=== PATIENT | female | born 1945 | race Caucasian/White ===

== ENCOUNTER 2018-08-06 04:29 | Inpatient (IN) | payer MEDICARE, OTHER ==
[2018-08-06] MEDS ORDERED: DUONEB 0.5-3 MG/3 ml Neb IH ONE ×2 (04:41→04:42)
[2018-08-06] MEDS ORDERED: ROCEPHIN 1 Gm-D5w 50 ml Bag** 1 G/50 ML IVPB IV STA (04:42)
[2018-08-06] MEDS ORDERED: Zithromax 500 MG/ 250 ML NaCl Premix 500 MG/250 ML IVPB IV STA (04:42)
[2018-08-06] MEDS ORDERED: solu-MEDROL 125 MG IV ONE (04:42)
--- NOTE | 2018-08-06 04:49 | ERPHSYRPT ---
- History of Present Illness Source: patient Exam Limitations: no limitations Timing/Duration: day(s) Activities at Onset: none Severity of Dyspnea-Max: moderate Severity of Dyspnea-Current: moderate Allergies/Adverse Reactions: propoxyphene [From Darvon] Allergy (Verified 08/06/18 05:03) Home Medications: Albuterol Sulfate [Proair Hfa] 8.5 gm IH Q4HPRN PRN 08/06/18 [History] Aspirin EC 81 mg [Ecotrin 81 mg] 81 mg PO DAILY 08/06/18 [History] Budesonide/Formoterol Fumarate [Symbicort 160-4.5 Mcg Inhaler] 10.2 gm IH BID [History] Isosorbide Mononitrate 60 mg [Imdur 60MG] 60 mg PO DAILY 08/06/18 [History] Lisinopril 20 mg [Zestril 20 MG] 20 mg PO BID 08/06/18 [History] Metoprolol Tartrate 50 mg [Lopressor 50 MG] 50 mg PO DAILY 08/06/18 [ History] Multivit with Iron,Minerals [Multivitamins with Iron] 1 tab PO DAILY 08/06/18 [ History] Ropinirole HCl 0.5 mg [Requip 0.5 MG] 0.5 mg PO HS 08/06/18 [History] Ticagrelor [Brilinta] 90 mg PO BID 08/06/18 [History] - Review of Systems Constitutional: Fatigue, Weakness Eyes: No Symptoms Ears, Nose, & Throat: No Symptoms Respiratory: Dyspnea on Exertion (BEAVERS), Wheezing Cardiac: No Chest Pain, No Edema, No Syncope Abdominal/Gastrointestinal: No Abdominal Pain, No Nausea, No Vomiting, No Diarrhea Genitourinary Symptoms: No Dysuria Musculoskeletal: No Back Pain, No Neck Pain Neurological: No Dizziness, No Focal Weakness, No Sensory Changes - Nursing Vital Signs Nursing Vital Signs: Initial Vital Signs Temperature 100.8 F 08/06/18 04:35 Pulse Rate 118 H 08/06/18 04:35 Respiratory Rate 24 08/06/18 04:35 Blood Pressure 200/111 08/06/18 04:35 O2 Sat by Pulse Oximetry 98 08/06/18 04:35 Pain Scale Pain Intensity 2 - Physical Exam General Appearance: moderate distress, cachetic Eye Exam: PERRL/EOMI Respiratory Exam: respiratory distress, accessory muscle use, wheezing Cardiovascular/Chest Exam: normal heart sounds, regular rate/rhythm Abdominal/Gastrointestinal Exam: soft, No tenderness, No distention, No mass Extremity Exam: non-tender, normal range of motion, normal inspection, no calf tenderness, no pedal edema Neurologic Exam: alert, oriented x 3, cooperative, spanish moss picker II-XII nml as tested, sensation nml, No motor deficits SpO2 Interpretation: hypoxic (Required 3 lit NC) - Course Nursing assessment & vital signs reviewed: Yes EKG Interpreted by Me: Sinus Tach, NORMAL ST-T - Radiology Exams Chest X-ray Interpretation: Interpreted by me (Hyperinflated lungs. Infiltrates on RLL and RML) Ordered Tests: Active Orders 24 hr Category Date Time Status Director Physical STAT Care 08/06/18 04:44 Active EKG-ER Only STAT Care 08/06/18 04:42 Active IV Insertion STAT Care 08/06/18 04:42 Active Oxygen-ED Only Nasal Cannula 3 lpm Care 08/06/18 04:42 Active CHEST 2 VIEWS (PA AND LAT) Stat Exams 08/06/18 04:44 Ordered CHEST WITH CONTRAST [CT] Stat Exams 08/06/18 05:49 Ordered CBC W DIFF Stat Lab 08/06/18 04:55 Received CMP Stat Lab 08/06/18 04:55 Received D-DIMER QUANTITATION Stat Lab 08/06/18 04:55 Received Lactic Acid Stat Lab 08/06/18 04:52 Completed MAGNESIUM Stat Lab 08/06/18 04:55 Received NT PRO BNP Stat Lab 08/06/18 04:55 Received Sputum Culture [CULTURE,SPUTUM] Stat Lab 08/06/18 Uncollected TROPONIN Q3H Lab 08/06/18 04:55 Received TROPONIN Q3H Lab 08/06/18 07:45 Ordered TROPONIN Q3H Lab 08/06/18 10:45 Ordered TROPONIN Q3H Lab 08/06/18 13:45 Ordered TROPONIN Q3H Lab 08/06/18 16:45 Ordered UA W/RFX UR CULTURE Stat Lab 08/06/18 04:43 Uncollected Respiratory Nebulizer STAT RT 08/06/18 04:45 Completed Respiratory Therapy Assessment DAILY RT 08/06/18 04:52 Completed Medication Summary Discontinued Medications Generic Name Dose Route Start Last Admin Trade Name Chapo PRN Reason Stop Dose Admin Albuterol/Ipratropium Confirm 08/06/18 04:41 Duoneb 0.5-3 Mg/3 Ml Neb Administered 08/06/18 04:42 Dose 3 ml IH .STK-MED ONE Albuterol/Ipratropium 3 ml 08/06/18 04:42 08/06/18 04:51 Duoneb 0.5-3 Mg/3 Ml Neb IH 08/06/18 04:43 3 ml STAT ONE Administration Furosemide 40 mg 08/06/18 05:50 08/06/18 05:56 Lasix 40 Mg/4 Ml IV 08/06/18 05:51 40 mg STAT ONE Administration Furosemide Confirm 08/06/18 05:54 Lasix 40 Mg/4 Ml Administered 08/06/18 05:55 Dose 40 mg .ROUTE .STK-MED ONE Hydralazine HCl 20 mg 08/06/18 05:01 08/06/18 05:09 Apresoline 20 Mg/Ml Inj IV 08/06/18 05:02 20 mg STAT ONE Administration Ceftriaxone Sodium/Dextrose 1 g in 50 mls @ 100 mls/hr 08/06/18 04:42 05:08 Rocephin 1 Gm-D5w 50 Ml Bag IV 08/06/18 05:11 200 ml/hr STAT STA 200 mls/hr Administration Azithromycin 500 mg in 250 mls @ 250 mls/hr 08/06/18 04:42 08/06/18 06:00 Zithromax 500 Mg/ 250 Ml Nacl Premix IV 08/06/18 05:41 250 ml/hr STAT STA 250 mls/hr Administration Azithromycin Confirm 08/06/18 05:07 Zithromax 500 Mg/ 250 Ml Nacl Premix Administered 08/06/18 05:08 Dose 500 mg in 250 mls @ ud IV .STK-MED ONE Ceftriaxone Sodium/Dextrose Confirm 08/06/18 05:07 Rocephin 1 Gm-D5w 50 Ml Bag Administered 08/06/18 05:08 Dose 1 g in 50 mls @ ud IV .STK-MED ONE Oseltamivir Phosphate 75 mg 08/06/18 05:50 08/06/18 05:57 Tamiflu 75mg Capsule PO 08/06/18 05:51 75 mg STAT ONE Administration Oseltamivir Phosphate Confirm 08/06/18 05:54 Tamiflu 75mg Capsule Administered 08/06/18 05:55 Dose 75 mg PO .K-MED ONE Lab/Rad Data: Laboratory Result Diagrams 08/06/18 04:55 08/06/18 04:55 Laboratory Results 08/06/18 08/06/18 08/06/18 Range/Units 04:55 04:55 04:55 WBC (4.0-10.5) K/mm3 RBC (4.1-5.4) M/mm3 Hgb (12.0-16.0) gm/dl Hct (35-47) % MCV (78-100) fl MCH (26-32) pg MCHC (32-36) g/dl RDW (11.5-14.0) % Plt Count (150-450) K/mm3 MPV (6-9.5) fl Gran % (36.0-66.0) % Eos # (Auto) (0-0.5) Absolute Lymphs (auto) (1.0-4.6) Absolute Monos (auto) (0.0-1.3) Lymphocytes % (24.0-44.0) % Monocytes % (0.0-12.0) % Eosinophils % (0.00-5.0) % Basophils % (0.0-0.4) % Absolute Granulocytes (1.4-6.9) Basophils # (0-0.4) D-Dimer 1393 H* (215-500) ng/mL Sodium (137-145) mmol/L Potassium (3.5-5.1) mmol/L Chloride (98-107) mmol/L Carbon Dioxide (22-30) mmol/L Anion Gap (5-15) MEQ/L BUN (7-17) mg/dL Creatinine (0.52-1.04) mg/dL Estimated GFR ML/MIN Glucose (74-106) mg/dL Lactic Acid (0.4-2.0) Calcium (8.4-10.2) mg/dL Magnesium (1.6-2.3) mg/dL Total Bilirubin (0.2-1.3) mg/dL AST (14-36) U/L ALT (0-35) U/L Alkaline Phosphatase (38-126) U/L Troponin I 0.017 (0.000-0.034) ng/mL NT-Pro-B Natriuret Pep (0-900) pg/mL Serum Total Protein (6.3-8.2) g/dL Albumin (3.5-5.0) g/dL Influenza Type A Ag POSITIVE (NEGATIVE) Influenza Type B Ag NEGATIVE (NEGATIVE) RSV (PCR) NEGATIVE (Negative) 08/06/18 08/06/18 08/06/18 Range/Units 04:55 04:55 04:52 WBC 11.3 H (4.0-10.5) K/mm3 RBC 4.06 L (4.1-5.4) M/mm3 Hgb 12.4 (12.0-16.0) gm/dl Hct 37.3 (35-47) % MCV 91.9 (78-100) fl MCH 30.5 (26-32) pg MCHC 33.2 (32-36) g/dl RDW 14.3 H (11.5-14.0) % Plt Count 316 (150-450) K/mm3 MPV 9.3 (6-9.5) fl Gran % 89.0 H (36.0-66.0) % Eos # (Auto) 0 (0-0.5) Absolute Lymphs (auto) 0.79 L (1.0-4.6) Absolute Monos (auto) 0.44 (0.0-1.3) Lymphocytes % 7.0 L (24.0-44.0) % Monocytes % 3.9 (0.0-12.0) % Eosinophils % 0.0 (0.00-5.0) % Basophils % 0.1 (0.0-0.4) % Absolute Granulocytes 10.03 H (1.4-6.9) Basophils # 0.01 (0-0.4) D-Dimer (215-500) ng/mL Sodium 132 L (137-145) mmol/L Potassium 3.9 (3.5-5.1) mmol/L Chloride 96 L (98-107) mmol/L Carbon Dioxide 28 (22-30) mmol/L Anion Gap 11.7 (5-15) MEQ/L BUN 21 H (7-17) mg/dL Creatinine 0.73 (0.52-1.04) mg/dL Estimated GFR > 60.0 ML/MIN Glucose 122 H (74-106) mg/dL Lactic Acid 1.2 (0.4-2.0) Calcium 9.0 (8.4-10.2) mg/dL Magnesium 1.6 (1.6-2.3) mg/dL Total Bilirubin 0.60 (0.2-1.3) mg/dL AST 44 H (14-36) U/L ALT 36 H (0-35) U/L Alkaline Phosphatase 83 (38-126) U/L Troponin I (0.000-0.034) ng/mL NT-Pro-B Natriuret Pep 1200 H (0-900) pg/mL Serum Total Protein 6.8 (6.3-8.2) g/dL Albumin 3.9 (3.5-5.0) g/dL Influenza Type A Ag (NEGATIVE) Influenza Type B Ag (NEGATIVE) RSV (PCR) (Negative) - Progress Progress: improved Air Movement: fair Progress Note: Pt had lab work that showed Influenza A and elevated D dimer. CT for PE study was ordered, and pt got Tamiflu, on top of Azithromycin, and Rocephin that she got earlier. Lasix IV was given, secondary to elevated BNP. Pt did have duo neb x2 and Solu Medrol was given IM in the ambulance on the way to the hospital. Secondary to elevated BP, Hydralazine 20mg IV was given once, and BP was improved. Pt will need admission to ICU. 08/06/18 06:33 Blood Culture(s) Obtained: No Antibiotics given: Yes Discussed with : Latisha Will see patient in: hospital (full admit) Counseled pt/family regarding: lab results, diagnosis - Departure Time of Disposition: 06:38 Departure Disposition: In-patient Admission Clinical Impression: Influenza A (H1N1), COPD exacerbation Condition: Stable Critical Care Time: No Referrals: MARIEL LACEY [Primary Care Provider] - Instructions: Chronic Obstructive Pulmonary Disease
[2018-08-06 04:59] LABS: BASOPHIL % 0.1 % (0.0-0.4); Basophil (Absolute #) 0.01 (0-0.4); Eosinophil (Absolute #) 0 (0-0.5); Granulocyte Absolute (ANC) 10.03 (1.4-6.9); Hematocrit 37.3 % (35-47); Hemoglobin 12.4 gm/dl (12.0-16.0); Lymphocyte (Absolute #) 0.79 (1.0-4.6); Mean Cell Volume 91.9 fl (78-100); Mean Corpuscular Hemoglobin 30.5 pg (26-32); Mean Corpuscular Hgb Concent. 33.2 g/dl (32-36); Mean Platelet Volume 9.3 fl (6-9.5); Monocyte (Absolute #) 0.44 (0.0-1.3); Monocytes % 3.9 % (0.0-12.0); Platelet Count 316 K/mm3 (150-450); Red Blood Count 4.06 M/mm3 (4.1-5.4); Red Cell Distribution Width 14.3 % (11.5-14.0); White Blood Count 11.3 K/mm3 (4.0-10.5)
[2018-08-06] MEDS ORDERED: APRESOLINE 20 MG/ML INJ IV ONE (05:01)
[2018-08-06] MEDS ORDERED: Zithromax 500 MG/ 250 ML NaCl Premix 500 MG/250 ML IVPB IV ONE (05:07)
[2018-08-06] MEDS ORDERED: ROCEPHIN 1 Gm-D5w 50 ml Bag** 1 G/50 ML IVPB IV ONE (05:07)
[2018-08-06 05:30] LABS: INFLUENZA A POSITIVE (NEGATIVE); INFLUENZA B NEGATIVE (NEGATIVE); RESPIRATORY SYNCTIAL VIRUS NEGATIVE (Negative)
[2018-08-06 05:45] LABS: ALBUMIN 3.9 g/dL (3.5-5.0); ALKALINE PHOSPHATASE 83 U/L (38-126); ANION GAP 11.7 MEQ/L (5-15); BLOOD UREA NITROGEN 21 mg/dL (7-17); CHLORIDE 96 mmol/L (98-107); Carbon Dioxide 28 mmol/L (22-30); Creatinine 1 0.73 mg/dL (0.52-1.04); Glucose 122 mg/dL (74-106); MAGNESIUM 1.6 mg/dL (1.6-2.3); NT PRO BNP 1200 pg/mL (0-900); Potassium 3.9 mmol/L (3.5-5.1); SGOT/AST 44 U/L (14-36); SGPT/ALT 36 U/L (0-35); SODIUM 132 mmol/L (137-145); Total Protein 6.8 g/dL (6.3-8.2)
[2018-08-06] MEDS ORDERED: Tamiflu 75MG Capsule PO ONE ×2 (05:50→05:54)
[2018-08-06] MEDS ORDERED: Lasix 40 MG/4 ML IV ONE (05:50)
[2018-08-06] MEDS ORDERED: Lasix 40 MG/4 ML ONE (05:54)
[2018-08-06] MEDS ORDERED: DUONEB 0.5-3 MG/3 ml Neb IH PRN (06:39)
[2018-08-06 07:14] LABS: Appearance CLEAR (CLEAR); Bilirubin NEGATIVE (NEGATIVE); Blood NEGATIVE Ery/ul (0-5); Glucose NEGATIVE (NEGATIVE); Ketones NEGATIVE (NEGATIVE); Leukocyte Esterase NEGATIVE (NEGATIVE); Nitrite NEGATIVE (NEGATIVE); Protein,Urine Dip NEGATIVE (Negative); Specific Gravity 1.015 (1.005-1.025); Urobilinogen 2 mg/dL (0-1)
--- NOTE | 2018-08-06 08:59 | XRAY ---
Indication: Short of breath. Elevated d-dimer. History COPD and left lung carcinoma. Multiple contiguous axial images obtained through the chest using 80 cc Isovue 370 contrast and PE protocol. Comparison: None There is good opacification of the pulmonary arteries to include the lobar and segmental branches. No filling defect or pulmonary embolus. 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 Aorta is normal in course and caliber. Moderate scattered aortic and coronary calcifications. Patent left subclavian artery stent graft and left-sided Port-A-Cath. [place] right hilar calcified nodes. No pathologic mediastinal/hilar lymphadenopathy. Small hiatal hernia. Examination of the lung parenchyma demonstrates patchy right middle and right lower lobe interstitial alveolar opacities. No consolidation or effusion. Mild scattered fibrosis/scarring including peripheral right middle lobe suture material. 5 mm superior left lower lobe noncalcified nodularity. Bony thorax demonstrates mild remote appearing T8 compression deformity with less than 25% height loss. Also L1/L2 superior Schmorl node. Limited upper abdomen including adrenal glands unremarkable. Impression: 1. Negative pulmonary embolus. 2. Right middle and right lower lobe patchy airspace disease. No consolidation or large effusion. 3. Incidental scattered fibrosis/scarring. 5 mm left lower lobe noncalcified nodularity may be related but a true nodule/mass not completely excluded. Comparison studies would be of benefit if performed elsewhere. If not available, recommend follow-up for Fleischner guidelines. 4. Chronic bony findings, small hiatal hernia, and scattered arteriosclerotic disease. Comment: Preliminary interpretation was made by [facility]. No critical discrepancy. CT DI 10.00
--- NOTE | 2018-08-06 09:02 | XRAY ---
Indication: Short of breath. Cough. Positive influenza. Comparison: None AP/lateral chest hyperinflated with right mid and lower lung patchy infiltrates. No consolidation or large effusion. 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 Peripheral right midlung suture material, left subclavian artery stent graft, and left Port-A-Cath. Bony thorax intact with mild osteopenia and degenerative changes. Impression: 1. Right lung patchy pneumonic infiltrates. 2. Incidental chronic findings detailed above.
[2018-08-06] MEDS ORDERED: Sodium Chloride 0.9% 1000 ML 1,000 ML IV SCH (09:15)
--- NOTE | 2018-08-06 09:37 | PCM.HP ---
History of Present Illness - Chief Complaint Chief Complaint: Shortness of Breath for 2 days History of Present Illness: is a 72 year old female.came to ER with c/o fever, shortness of breath for 1-2 days - Review of Systems Constitutional: Fever, Chills, Lethargy Eyes: No Symptoms Ears, Nose, & Throat: No Symptoms Respiratory: Cough, Orthopnea, Short Of Breath, Wheezing Cardiac: No Chest Pain, No Edema, No Syncope Abdominal/Gastrointestinal: No Abdominal Pain, No Nausea, No Vomiting, No Diarrhea Genitourinary Symptoms: No Dysuria Musculoskeletal: No Back Pain, No Neck Pain Skin: No Rash Neurological: No Dizziness, No Focal Weakness, No Sensory Changes Psychological: No Symptoms Endocrine: No Symptoms Hematologic/Lymphatic: No Symptoms Immunological/Allergic: No Symptoms Medications & Allergies Home Medications: Home Medication List Albuterol Sulfate [Proair Hfa] 8.5 gm IH Q4HPRN PRN 08/06/18 [History Confirmed 08/06/18] Aspirin EC 81 mg [Ecotrin 81 mg] 81 mg PO DAILY 08/06/18 [History Confirmed 08/06/18] Budesonide/Formoterol Fumarate [Symbicort 160-4.5 Mcg Inhaler] 10.2 gm IH BID [History Confirmed 08/06/18] Isosorbide Mononitrate 60 mg [Imdur 60MG] 60 mg PO DAILY 08/06/18 [History Confirmed 08/06/18] Lisinopril 20 mg [Zestril 20 MG] 20 mg PO BID 08/06/18 [History Confirmed 08/06/18] Metoprolol Tartrate 50 mg [Lopressor 50 MG] 50 mg PO DAILY 08/06/18 [ History Confirmed 08/06/18] Multivit with Iron,Minerals [Multivitamins with Iron] 1 tab PO DAILY 08/06/18 [ History Confirmed 08/06/18] Ropinirole HCl 0.5 mg [Requip 0.5 MG] 0.5 mg PO HS 08/06/18 [History Confirmed 08/06/18] Ticagrelor [Brilinta] 90 mg PO BID 08/06/18 [History Confirmed 08/06/18] Allergies/Adverse Reactions: Allergies Allergy/AdvReac Type Severity Reaction Status Date / Time propoxyphene [From Darvon] Allergy Verified 08/06/18 05:03 - Past Medical History Past Medical History: Yes Cardiac History: Coronary Artery Disease, High Cholesterol, Hypertension, Myocardial Infarction ([place]) Respiratory History: COPD - Past Surgical History Past Surgical History: Yes Cardiac History: CABG, Cardiac Catheterization, Cardiac Stent GI Surgical History: Appendectomy Musculskeletal Surgical Hx: Orthopedic Surgery Other Surgical History: triple vessel bypass; 15 stents - Social History Smoking Status: Former smoker Exposure to second hand smoke: No Alcohol: None Drug Use: none - Physical Exam Vital Signs: Vital Signs - 24 hr Temp Pulse Resp BP Pulse Ox 08/06/18 08:36 18 83/52 98 08/06/18 07:52 90 18 98 08/06/18 06:20 105 H 22 119/72 98 08/06/18 05:20 112 H 20 167/89 98 08/06/18 04:52 118 H 20 97 08/06/18 04:35 100.8 F 118 H 24 200/111 97 Oxygen-Last 24 hours O2 Percentage 2 Liters = 28% O2 Percentage 3 Liters = 32% O2 Percentage 3 Liters = 32% O2 Percentage 3 Liters = 32% General Appearance: no apparent distress, alert Neurologic Exam: alert, oriented x 3, cooperative, normal mood/affect, nml cerebellar function, nml station & gait, sensation nml, No motor deficits Eye Exam: PERRL/EOMI, eyes nml inspection Ears, Nose, Throat Exam: normal ENT inspection, TMs normal, pharynx normal, moist mucous membranes Neck Exam: normal inspection, non-tender, supple, full range of motion Respiratory Exam: crackles/rales, rhonchi, wheezing, No respiratory distress Cardiovascular Exam: regular rate/rhythm, normal heart sounds, normal peripheral pulses Gastrointestinal/Abdomen Exam: soft, normal bowel sounds, No tenderness, No mass Back Exam: normal inspection, normal range of motion, No CVA tenderness, No vertebral tenderness Extremity Exam: normal inspection, normal range of motion, pelvis stable Skin Exam: normal color, warm, dry, No rash Lymphatic Exam: No adenopathy Results - Labs Lab/Micro Results: Lab Results-Last 24 Hours 01/30/19 01/30/19 01/30/19 Range/Units 04:52 04:55 04:55 WBC 11.3 H (4.0-10.5) K/mm3 RBC 4.06 L (4.1-5.4) M/mm3 Hgb 12.4 (12.0-16.0) gm/dl Hct 37.3 (35-47) % MCV 91.9 (78-100) fl MCH 30.5 (26-32) pg MCHC 33.2 (32-36) g/dl RDW 14.3 H (11.5-14.0) % Plt Count 316 (150-450) K/mm3 MPV 9.3 (6-9.5) fl Gran % 89.0 H (36.0-66.0) % Eos # (Auto) 0 (0-0.5) Absolute Lymphs (auto) 0.79 L (1.0-4.6) Absolute Monos (auto) 0.44 (0.0-1.3) Lymphocytes % 7.0 L (24.0-44.0) % Monocytes % 3.9 (0.0-12.0) % Eosinophils % 0.0 (0.00-5.0) % Basophils % 0.1 (0.0-0.4) % Absolute Granulocytes 10.03 H (1.4-6.9) Basophils # 0.01 (0-0.4) D-Dimer (215-500) ng/mL Sodium 132 L (137-145) mmol/L Potassium 3.9 (3.5-5.1) mmol/L Chloride 96 L (98-107) mmol/L Carbon Dioxide 28 (22-30) mmol/L Anion Gap 11.7 (5-15) MEQ/L BUN 21 H (7-17) mg/dL Creatinine 0.73 (0.52-1.04) mg/dL Estimated GFR > 60.0 ML/MIN Glucose 122 H (74-106) mg/dL Lactic Acid 1.2 (0.4-2.0) Calcium 9.0 (8.4-10.2) mg/dL Magnesium 1.6 (1.6-2.3) mg/dL Total Bilirubin 0.60 (0.2-1.3) mg/dL AST 44 H (14-36) U/L ALT 36 H (0-35) U/L Alkaline Phosphatase 83 (38-126) U/L Troponin I (0.000-0.034) ng/mL NT-Pro-B Natriuret Pep 1200 H (0-900) pg/mL Serum Total Protein 6.8 (6.3-8.2) g/dL Albumin 3.9 (3.5-5.0) g/dL Urine Color (YELLOW) Urine Appearance (CLEAR) Urine pH (5-6) Ur Specific Dana (1.005-1.025) Urine Protein (Negative) Urine Ketones (NEGATIVE) Urine Blood (0-5) Petey/ul Urine Nitrite (NEGATIVE) Urine Bilirubin (NEGATIVE) Urine Urobilinogen (0-1) mg/dL Ur Leukocyte Esterase (NEGATIVE) Urine WBC (Auto) (0-5) /HPF Urine RBC (Auto) (0-2) /HPF U Epithel Cells (Auto) (FEW) /HPF Urine Bacteria (Auto) (NEGATIVE) /HPF Urine Culture Reflexed (NO) Urine Glucose (NEGATIVE) mg/dL Influenza Type A Ag (NEGATIVE) Influenza Type B Ag (NEGATIVE) RSV (PCR) (Negative) 08/06/18 08/06/18 08/06/18 Range/Units 04:55 04:55 04:55 WBC (4.0-10.5) K/mm3 RBC (4.1-5.4) M/mm3 Hgb (12.0-16.0) gm/dl Hct (35-47) % MCV (78-100) fl MCH (26-32) pg MCHC (32-36) g/dl RDW (11.5-14.0) % Plt Count (150-450) K/mm3 MPV (6-9.5) fl Gran % (36.0-66.0) % Eos # (Auto) (0-0.5) Absolute Lymphs (auto) (1.0-4.6) Absolute Monos (auto) (0.0-1.3) Lymphocytes % (24.0-44.0) % Monocytes % (0.0-12.0) % Eosinophils % (0.00-5.0) % Basophils % (0.0-0.4) % Absolute Granulocytes (1.4-6.9) Basophils # (0-0.4) D-Dimer 1393 H* (215-500) ng/mL Sodium (137-145) mmol/L Potassium (3.5-5.1) mmol/L Chloride (98-107) mmol/L Carbon Dioxide (22-30) mmol/L Anion Gap (5-15) MEQ/L BUN (7-17) mg/dL Creatinine (0.52-1.04) mg/dL Estimated GFR ML/MIN Glucose (74-106) mg/dL Lactic Acid (0.4-2.0) Calcium (8.4-10.2) mg/dL Magnesium (1.6-2.3) mg/dL Total Bilirubin (0.2-1.3) mg/dL AST (14-36) U/L ALT (0-35) U/L Alkaline Phosphatase (38-126) U/L Troponin I 0.017 (0.000-0.034) ng/mL NT-Pro-B Natriuret Pep (0-900) pg/mL Serum Total Protein (6.3-8.2) g/dL Albumin (3.5-5.0) g/dL Urine Color (YELLOW) Urine Appearance (CLEAR) Urine pH (5-6) Ur Specific Dana (1.005-1.025) Urine Protein (Negative) Urine Ketones (NEGATIVE) Urine Blood (0-5) Petey/ul Urine Nitrite (NEGATIVE) Urine Bilirubin (NEGATIVE) Urine Urobilinogen (0-1) mg/dL Ur Leukocyte Esterase (NEGATIVE) Urine WBC (Auto) (0-5) /HPF Urine RBC (Auto) (0-2) /HPF U Epithel Cells (Auto) (FEW) /HPF Urine Bacteria (Auto) (NEGATIVE) /HPF Urine Culture Reflexed (NO) Urine Glucose (NEGATIVE) mg/dL Influenza Type A Ag POSITIVE (NEGATIVE) Influenza Type B Ag NEGATIVE (NEGATIVE) RSV (PCR) NEGATIVE (Negative) 08/06/18 08/06/18 Range/Units 06:51 08:00 WBC (4.0-10.5) K/mm3 RBC (4.1-5.4) M/mm3 Hgb (12.0-16.0) gm/dl Hct (35-47) % MCV (78-100) fl MCH (26-32) pg MCHC (32-36) g/dl RDW (11.5-14.0) % Plt Count (150-450) K/mm3 MPV (6-9.5) fl Gran % (36.0-66.0) % Eos # (Auto) (0-0.5) Absolute Lymphs (auto) (1.0-4.6) Absolute Monos (auto) (0.0-1.3) Lymphocytes % (24.0-44.0) % Monocytes % (0.0-12.0) % Eosinophils % (0.00-5.0) % Basophils % (0.0-0.4) % Absolute Granulocytes (1.4-6.9) Basophils # (0-0.4) D-Dimer (215-500) ng/mL Sodium (137-145) mmol/L Potassium (3.5-5.1) mmol/L Chloride (98-107) mmol/L Carbon Dioxide (22-30) mmol/L Anion Gap (5-15) MEQ/L BUN (7-17) mg/dL Creatinine (0.52-1.04) mg/dL Estimated GFR ML/MIN Glucose (74-106) mg/dL Lactic Acid (0.4-2.0) Calcium (8.4-10.2) mg/dL Magnesium (1.6-2.3) mg/dL Total Bilirubin (0.2-1.3) mg/dL AST (14-36) U/L ALT (0-35) U/L Alkaline Phosphatase (38-126) U/L Troponin I 0.120 H* (0.000-0.034) ng/mL NT-Pro-B Natriuret Pep (0-900) pg/mL Serum Total Protein (6.3-8.2) g/dL Albumin (3.5-5.0) g/dL Urine Color STRAW (YELLOW) Urine Appearance CLEAR (CLEAR) Urine pH 6.0 (5-6) Ur Specific Dana 1.015 (1.005-1.025) Urine Protein NEGATIVE (Negative) Urine Ketones NEGATIVE (NEGATIVE) Urine Blood NEGATIVE (0-5) Petey/ul Urine Nitrite NEGATIVE (NEGATIVE) Urine Bilirubin NEGATIVE (NEGATIVE) Urine Urobilinogen 2 (0-1) mg/dL Ur Leukocyte Esterase NEGATIVE (NEGATIVE) Urine WBC (Auto) NONE (0-5) /HPF Urine RBC (Auto) NONE (0-2) /HPF U Epithel Cells (Auto) NONE (FEW) /HPF Urine Bacteria (Auto) NONE (NEGATIVE) /HPF Urine Culture Reflexed NO (NO) Urine Glucose NEGATIVE (NEGATIVE) mg/dL Influenza Type A Ag (NEGATIVE) Influenza Type B Ag (NEGATIVE) RSV (PCR) (Negative) - Radiology Impressions Radiology Exams & Impressions: Radiology Procedures Category Date Time Status CHEST 2 VIEWS (PA AND LAT) Stat Exams 08/06/18 04:44 Completed CHEST WITH CONTRAST [CT] Stat Exams 08/06/18 05:49 Completed - Other Procedures and Tests Respiratory Therapy 08/06/18 06:39 Oxygen Nasal Cannula 3 lpm 08/06/18 07:52 Respiratory Therapy Assessment DAILY 08/06/18 07:57 Peak Expiratory Flow Rate ONCE Assessment/Plan (1) NSTEMI (non-ST elevated myocardial infarction) Current Visit: Yes Status: Acute Assessment & Plan: Last Vital Signs Temp 100.8 F 08/06/18 04:35 Pulse 90 08/06/18 07:52 Resp 18 08/06/18 08:36 BP 83/52 08/06/18 08:36 Pulse Ox 98 08/06/18 08:36 Allergies propoxyphene [From Darvon] Allergy (Verified 08/06/18 05:03) Active Medications Albuterol/Ipratropium (Duoneb 0.5-3 Mg/3 Ml Neb) 3 ml IH Q4HRT BRIAN Stop: 09/05/18 06:59 Azithromycin (Zithromax 500 Mg/ 250 Ml Nacl Premix) 500 mg in 250 mls @ 250 mls /hr IV Q24H10 BRIAN Stop: 09/06/18 09:59 Ceftriaxone Sodium/Dextrose (Rocephin 1 Gm-D5w 50 Ml Bag) 1 g in 50 mls @ 100 mls/hr IV Q24H10 BRIAN Stop: 09/06/18 09:59 Sodium Chloride (Sodium Chloride 0.9% 1000 Ml) 1,000 mls @ 50 mls/hr IV .Q20H BRIAN Stop: 09/05/18 09:14 Methylprednisolone Sodium Succinate (Solu-Medrol 125 Mg) 80 mg IV Q6HT BRIAN Stop: 09/05/18 11:59 Intake & Output 08/05/18 08/06/18 11:59 11:59 Weight 48.081 kg Orders 08/06/18 09:15 NaCl 0.9% 1000 ml [Sodium Chloride 0.9% 1000 ML] 1,000 ml IV 50 mls/hr 08/06/18 09:30 Cardio-Pulmonary Rehab .as ordered Lab Tests 08/06/18 08/06/18 08/06/18 04:52 04:55 04:55 WBC 11.3 H RBC 4.06 L Hgb 12.4 Hct 37.3 MCV 91.9 MCH 30.5 MCHC 33.2 RDW 14.3 H Plt Count 316 MPV 9.3 Gran % 89.0 H Eos # (Auto) 0 Absolute Lymphs (auto) 0.79 L Absolute Monos (auto) 0.44 Lymphocytes % 7.0 L Monocytes % 3.9 Eosinophils % 0.0 Basophils % 0.1 Absolute Granulocytes 10.03 H Basophils # 0.01 D-Dimer Sodium 132 L Potassium 3.9 Chloride 96 L Carbon Dioxide 28 Anion Gap 11.7 BUN 21 H Creatinine 0.73 Estimated GFR > 60.0 Glucose 122 H Lactic Acid 1.2 Calcium 9.0 Magnesium 1.6 Total Bilirubin 0.60 AST 44 H ALT 36 H Alkaline Phosphatase 83 Troponin I NT-Pro-B Natriuret Pep 1200 H Serum Total Protein 6.8 Albumin 3.9 Urine Color Urine Appearance Urine pH Ur Specific Dana Urine Protein Urine Ketones Urine Blood Urine Nitrite Urine Bilirubin Urine Urobilinogen Ur Leukocyte Esterase Urine WBC (Auto) Urine RBC (Auto) U Epithel Cells (Auto) Urine Bacteria (Auto) Urine Culture Reflexed Urine Glucose Influenza Type A Ag Influenza Type B Ag RSV (PCR) 08/06/18 08/06/18 08/06/18 04:55 04:55 04:55 WBC RBC Hgb Hct MCV MCH MCHC RDW Plt Count MPV Gran % Eos # (Auto) Absolute Lymphs (auto) Absolute Monos (auto) Lymphocytes % Monocytes % Eosinophils % Basophils % Absolute Granulocytes Basophils # D-Dimer 1393 H* Sodium Potassium Chloride Carbon Dioxide Anion Gap BUN Creatinine Estimated GFR Glucose Lactic Acid Calcium Magnesium Total Bilirubin AST ALT Alkaline Phosphatase Troponin I 0.017 NT-Pro-B Natriuret Pep Serum Total Protein Albumin Urine Color Urine Appearance Urine pH Ur Specific Dana Urine Protein Urine Ketones Urine Blood Urine Nitrite Urine Bilirubin Urine Urobilinogen Ur Leukocyte Esterase Urine WBC (Auto) Urine RBC (Auto) U Epithel Cells (Auto) Urine Bacteria (Auto) Urine Culture Reflexed Urine Glucose Influenza Type A Ag POSITIVE Influenza Type B Ag NEGATIVE RSV (PCR) NEGATIVE 08/06/18 08/06/18 06:51 08:00 WBC RBC Hgb Hct MCV MCH MCHC RDW Plt Count MPV Gran % Eos # (Auto) Absolute Lymphs (auto) Absolute Monos (auto) Lymphocytes % Monocytes % Eosinophils % Basophils % Absolute Granulocytes Basophils # D-Dimer Sodium Potassium Chloride Carbon Dioxide Anion Gap BUN Creatinine Estimated GFR Glucose Lactic Acid Calcium Magnesium Total Bilirubin AST ALT Alkaline Phosphatase Troponin I 0.120 H* NT-Pro-B Natriuret Pep Serum Total Protein Albumin Urine Color STRAW Urine Appearance CLEAR Urine pH 6.0 Ur Specific Dana 1.015 Urine Protein NEGATIVE Urine Ketones NEGATIVE Urine Blood NEGATIVE Urine Nitrite NEGATIVE Urine Bilirubin NEGATIVE Urine Urobilinogen 2 Ur Leukocyte Esterase NEGATIVE Urine WBC (Auto) NONE Urine RBC (Auto) NONE U Epithel Cells (Auto) NONE Urine Bacteria (Auto) NONE Urine Culture Reflexed NO Urine Glucose NEGATIVE Influenza Type A Ag Influenza Type B Ag RSV (PCR) Patient troponin is positive, no chest pain, no acute ekg changes, will transfer patient to ICU at [facility], Code(s): I21.4 - NON-ST ELEVATION (NSTEMI) MYOCARDIAL INFARCTION (2) COPD exacerbation Current Visit: Yes Status: Acute Assessment & Plan: on IV rocephin and zithromax, Code(s): J44.1 - CHRONIC OBSTRUCTIVE PULMONARY DISEASE W (ACUTE) EXACERBATION (3) Influenza A (H1N1) Current Visit: Yes Status: Acute Code(s): J10.1 - FLU DUE TO OTH IDENT INFLUENZA VIRUS W OTH RESP MANIFEST
--- NOTE | 2018-08-06 09:39 | PCM.DCORD ---
- Discharge Discharge Date: 08/06/18 Disposition: DC TO [facility] Condition: Stable Prescriptions: No Action Metoprolol Tartrate 50 mg [Lopressor 50 MG] 50 mg PO DAILY Lisinopril 20 mg [Zestril 20 MG] 20 mg PO BID Ticagrelor [Brilinta] 90 mg PO BID Isosorbide Mononitrate 60 mg [Imdur 60MG] 60 mg PO DAILY Aspirin EC 81 mg [Ecotrin 81 mg] 81 mg PO DAILY Ropinirole HCl 0.5 mg [Requip 0.5 MG] 0.5 mg PO HS Albuterol Sulfate [Proair Hfa] 8.5 gm IH Q4HPRN PRN PRN Reason: Shortness Of Breath/Wheezing Budesonide/Formoterol Fumarate [Symbicort 160-4.5 Mcg Inhaler] 10.2 gm IH BID Multivit with Iron,Minerals [Multivitamins with Iron] 1 tab PO DAILY Follow up with: ELIAS NDIAYE [COURTESY STAFF] - 1 Week
[2018-08-06 10:06] VITALS: BP 80/52
[2018-08-06 10:29] VITALS: PULSE 97; O2SAT 98
[2018-08-06] MEDS ORDERED: DUONEB 0.5-3 MG/3 ml Neb IH SCH (11:00)
[2018-08-06] MEDS ORDERED: solu-MEDROL 125 MG IV SCH (12:00)
[2018-08-07] MEDS ORDERED: Zithromax 500 MG/ 250 ML NaCl Premix 500 MG/250 ML IVPB IV SCH (10:00)
[2018-08-07] MEDS ORDERED: ROCEPHIN 1 Gm-D5w 50 ml Bag** 1 G/50 ML IVPB IV SCH (10:00)
== END 2018-08-06 11:25 | disposition home or self-care (01) | DRG 281 ==
LOC: ED 04:29 → ICU 08:25 → UNDOADMIN 08:25 → UNDODISIN 11:25
PROVIDERS: ADMIT General Practice; ATTEND General Practice
DX: I21.4 Non-ST elevation (NSTEMI) myocardial infarction (principal); J44.1 Chronic obstructive pulmonary disease with (acute) exacerbation; J09.X2 Influenza due to identified novel influenza A virus with other respiratory manifestations; Z79.899 Other long term (current) drug therapy; I10 Essential (primary) hypertension
CPT/HCPCS: 36000; 36415; 71046; 71260; 80053; 81001; 83605; 83735; 83880; 84484; 85025; 85379; 87631; 93005; 93041; 94150; 94640; 96374; 96375; 99285; J0360; J0456; J0696; J1940; A9270-GY